=== PATIENT | female | born 1950 | race Caucasian/White ===

== ENCOUNTER → 2018-03-19 | Outpatient (CLI) | payer OTHER ==
[~2018-03-19] MED LIST: ASPIRIN81 M2 PO; ATORVASTATIN CA10 MG PO; BONIVA150 MG PO; CELEBREX100 MG PO; CLONAZEPAM0.5 MG PO; DULCOLAX5 MG PO; IMITREX100 MG PO; MELATONIN5 M4 PO; OCEAN NASAL 0.645 ML BOTH NARES; OLANZAPINE5 MG PO; PEPCID AC10 MG PO; PRILOSEC20 MG PO; PROVENTIL,2.5 MG/3 M IH; REFRESH TEARS15 ML BOTH EYES; RISPERDAL0.5 MG PO; SERTRALINE HCL100 MG PO; SINGULAIR10 MG PO; SPIRIVA18 MCG IH; VENTOLIN HFA18 GM IH
== END | disposition home or self-care (01) ==
LOC: AMB 08:18 → OPR 08:18 → RAD 09:00 → EDSTATUS 09:00
PROC: 0BBJ3ZX Excision of Left Lower Lung Lobe, Percutaneous Approach, Diagnostic (ICD-10-PCS; principal; 2018-03-19)
DX: C34.32 Malignant neoplasm of lower lobe, left bronchus or lung (principal); J44.9 Chronic obstructive pulmonary disease, unspecified; F17.210 Nicotine dependence, cigarettes, uncomplicated; Z88.0 Allergy status to penicillin; Z88.8 Allergy status to other drugs, medicaments and biological substances
CPT/HCPCS: 71045; 77012; 85027; 85610; 85730; 88305; 88341 TC; 88342 TC; J3010

== ENCOUNTER → 2018-04-24 | Outpatient (CLI) | payer MEDICARE, OTHER ==
[~2018-04-24] MED LIST changes: +ASPIRIN325 MG PO; -ASPIRIN81 M2 PO; +COLACE100 MG PO; +HYDROCODON-ACE1 EAC7 PO; -OLANZAPINE5 MG PO; +ZYPREXA2.5 MG PO
== END | disposition home or self-care (01) ==
LOC: CDC 09:07
DX: Z01.810 Encounter for preprocedural cardiovascular examination (principal); C34.90 Malignant neoplasm of unspecified part of unspecified bronchus or lung; R94.31 Abnormal electrocardiogram [ECG] [EKG]
CPT/HCPCS: 93000

== ENCOUNTER 2018-04-25 06:15 | Day surgery (SDC) | payer OTHER ==
[~2018-04-25] VITALS: Ht 160 cm; Wt 47.2 kg
[~2018-04-25 06:15] MED LIST changes: -COLACE100 MG PO; -HYDROCODON-ACE1 EAC7 PO
[2018-04-25 07:07] VITALS: BP 140/71
[2018-04-25 07:07] LABS: INTER. NORMALIZED RATIO 0.9
[2018-04-25 07:09] LABS: PTT 28.6 SEC (25-37)
[2018-04-25] MEDS ORDERED: COLACE100 MG PO (10:16)
[2018-04-25] MEDS ORDERED: HYDROCODON-ACE1 EAC7 PO (10:16)
[2018-04-25 11:05] VITALS: BP 132/61
[2018-04-25 12:02] VITALS: BP 142/66
== END 2018-04-25 12:20 | disposition home or self-care (01) ==
LOC: SDC 06:15
PROVIDERS: Thoracic Surgery (Cardiothoracic Vascular Surgery)
PROC: 07B74ZX Excision of Thorax Lymphatic, Percutaneous Endoscopic Approach, Diagnostic (ICD-10-PCS; principal; 2018-04-25)
DX: C34.32 Malignant neoplasm of lower lobe, left bronchus or lung (principal); J44.9 Chronic obstructive pulmonary disease, unspecified; I10 Essential (primary) hypertension; K21.9 Gastro-esophageal reflux disease without esophagitis; E78.5 Hyperlipidemia, unspecified; F17.210 Nicotine dependence, cigarettes, uncomplicated; Z79.82 Long term (current) use of aspirin
CPT/HCPCS: 82948; 85610; 85730; 86850; 86900; 86901; 88305; 94640; J0330; J1100; J2405; J2710; J3010; J7643

== ENCOUNTER → 2018-05-03 | Outpatient (CLI) | payer OTHER ==
[~2018-05-03] MED LIST changes: +COLACE100 MG PO; +HYDROCODON-ACE1 EAC7 PO
[2018-05-03 10:21] LABS: COMMENTS - BLOOD GASES A+C+; DEVICE RA; SITE LR; TOTAL RESP RATE 18 resp/min
[2018-05-03 10:22] LABS: BASE EXCESS 0 mEq/L (-3 to +3); BICARBONATE 23.8 mEq/L (22-26); CARBOXY HGB 1.9 % (0-5); PCO2 35 mm Hg (35-45); PO2 65 mm Hg (80-100); pH 7.44 (7.35-7.45)
== END | disposition home or self-care (01) ==
LOC: RES 10:08
PROVIDERS: Nurse Practitioner
DX: C34.90 Malignant neoplasm of unspecified part of unspecified bronchus or lung (principal)
CPT/HCPCS: 36600